=== PATIENT | female | born 1985 | race Caucasian/White ===

== ENCOUNTER → 2021-05-30 | Day surgery (SDC) | payer OTHER ==
[~2021-05-30] VITALS: Ht 162.6 cm; Wt 113.5 kg
[~2021-05-30] MED LIST: B COMPLEX1 EACH PO; BACTRIM DS TAB1 EACH PO; CLARITIN10 MG PO; COLACE100 MG PO; COMPAZINE10 MG PO; DOCUSATE PO; FOLIC ACID1 MG PO; HYDROXYZINE HCL50 MG PO; IBUPROFEN800 M1 PO; IRON18 MG PO; MELATONIN5 MG PO; NORCO 5-325 TA1 EACH PO; ONDANSETRON ODT4 MG PO; PERCOCET 5-3251 EACH PO; PREDNISONE5 MG PO; PRILOSEC20 MG PO; ZANTAC150 MG PO; ZYRTEC-D TABLE1 EACH PO
[2021-05-30 07:23] LABS: HCG (URINE) SCREEN NEGATIVE (NEGATIVE)
[2021-05-30 07:50] LABS: HCT 32.8 % (37.0-47.0); MCH 28.1 pg (25.0-31.0); MCHC 33.5 g/dL (32.0-36.0); MCV 83.7 fL (78.0-100.0); MPV 9.6 fL (6.0-9.5); RBC 3.92 M/uL (4.20-5.40); RDW 13.4 % (11.5-14.0); WBC 4.8 K/uL (4.0-10.5)
--- NOTE | 2021-05-30 14:19 | NUR ---
Up to bathrrom. voided large amount and had minimal vaginal bleeding. Denies burning with urination.
== END | disposition home or self-care (01) ==
LOC: FAS 06:57
PROVIDERS: Obstetrics & Gynecology
DX: D25.1 Intramural leiomyoma of uterus (principal); N80.0 Endometriosis of uterus; N80.2 Endometriosis of fallopian tube; N72 Inflammatory disease of cervix uteri; N87.9 Dysplasia of cervix uteri, unspecified; N83.201 Unspecified ovarian cyst, right side; N73.6 Female pelvic peritoneal adhesions (postinfective); E66.01 Morbid (severe) obesity due to excess calories; K21.9 Gastro-esophageal reflux disease without esophagitis; Z68.41 Body mass index [BMI] 40.0-44.9, adult; Z79.899 Other long term (current) drug therapy
CPT/HCPCS: 36415; 84703; 86850; 86900; 86901; 93005; J0690; J1100; J1170; J2250; J2270; J2405; J2704; J2710; J3010; J7120